=== PATIENT | female | born 1935 | race African-American/Black ===

== ENCOUNTER 2019-03-24 17:18 | Emergency (ER) | payer MEDICARE ==
[~2019-03-24] VITALS: Ht 157.5 cm; Wt 45.4 kg
--- NOTE | 2019-03-24 17:45 | NUR ---
ED Nurse Note: Pt brought in by ambulance from home d/t pt's family reporting that she has ALOC. Pt was recently discharged from SNF. Family nor EMS reported baseline; awaiting pt's family to arrive to ask about pt's normal level of consciousness. Vital signs stable as documented. Pt is A+Ox1, nonverbal. Contractures noted. Addendum: 03/24/19 at 1758 by BDUTTON BP elevated @ 178/108
[2019-03-24 18:02] VITALS: BP 172/111
[2019-03-24 18:02] LABS: APPEARANCE,URINE CLEAR; BILIRUBIN, URINE NEGATIVE (NEGATIVE); COLOR,URINE PALE YELLOW; GLUCOSE, URINE (UA) NEGATIVE (NEGATIVE); KETONES,URINE NEGATIVE (NEGATIVE); LEUKOCYTE ESTERASE ,URINE NEGATIVE (NEGATIVE); NITRITE,URINE NEGATIVE (NEGATIVE); PH,URINE 6 (4.5-8.0); PROTEIN,URINE 4+ (NEGATIVE); UROBILINOGEN,URINE NORMAL MG/DL (0.0-1.0)
[2019-03-24 18:06] LABS: BASOPHILS % (AUTO) 0.8 % (0.0-2.0); EOSINOPHILS % (AUTO) 0.7 % (0.0-3.0); HEMATOCRIT 30.9 % (37.0-47.0); HEMOGLOBIN 10.4 G/DL (12.0-16.0); LYMPHOCYTES % (AUTO) 14.7 % (20.0-45.0); MEAN CORPUSCULAR VOLUME 89 FL (80-99); MONOCYTES % (AUTO) 4.7 % (1.0-10.0); NEUTROPHILS % (AUTO) 79.2 % (45.0-75.0); PLATELET COUNT 341 K/UL (150-450); RED BLOOD COUNT 3.47 M/UL (4.20-5.40); RED CELL DISTRIBUTION WIDTH 10.9 % (11.6-14.8)
[2019-03-24 18:19] LABS: ANION GAP 9 mmol/L (5-15); BLOOD UREA NITROGEN 35 mg/dL (7-18); CALCIUM 7.4 MG/DL (8.5-10.1); CARBON DIOXIDE 28 MMOL/L (21-32); CHLORIDE 107 MMOL/L (98-107); CREATININE 1.6 MG/DL (0.55-1.30); POTASSIUM 5.1 MMOL/L (3.5-5.1); SODIUM 144 MMOL/L (136-145)
--- NOTE | 2019-03-24 18:21 | NUR ---
ED Nurse Note: BP 148/80. ED MD aware.
--- NOTE | 2019-03-24 18:24 | Diagnostic Imaging Report ---
EXAM: XR Chest, 1 View CLINICAL HISTORY: SOB TECHNIQUE: Frontal view of the chest. COMPARISON: No relevant prior studies available. FINDINGS: Lungs: Senescent changes. No confluent consolidation or edema. [place] of shadows or opacity/lesion left lung base. Pleural space: Unremarkable. No pneumothorax. Heart: Large cardiomediastinal silhouette. Mediastinum: See above. Bones/joints: No acute fracture. IMPRESSION: Senescent changes. No confluent consolidation or edema.
[2019-03-24 18:32] LABS: ALANINE AMINOTRANSFERASE 39 U/L (12-78); ALBUMIN 2.9 G/DL (3.4-5.0); ALBUMIN/GLOBULIN RATIO 0.6 (1.0-2.7); ALKALINE PHOSPHATASE 96 U/L (46-116); ASPARTATE AMINO TRANSFERASE 33 U/L (15-37); BILIRUBIN,TOTAL 0.1 MG/DL (0.2-1.0); CKMB 5.2 NG/ML (0.0-3.6); CREATINE KINASE 276 U/L (26-308); PHOSPHORUS 4.1 MG/DL (2.5-4.9)
--- NOTE | 2019-03-24 19:06 | NUR ---
HAND-OFF: Report given to Rex stephens RN. Endorsed all plan of care to Rex Stephens RN.
--- NOTE | 2019-03-24 19:15 | NUR ---
ED Nurse Note: RECEIVED REPORT FROM MIGUEL FALCON. PT AGUSTIN COFFEY. WILL CONTINUE TO MONITOR PATIENT.
[2019-03-24 21:30] VITALS: BP 143/86
--- NOTE | 2019-03-24 21:30 | NUR ---
ER DISCHARGE NOTE: Patient is cleared to be discharged per ERMD, pt is aox4, on room air, with stable vital signs. pt family was given dc instructions, pt family was able to verbalize understanding, pt id band and iv site removed without complications. pt is transported to family member's vehicle via wheelchair with . pt family took all belongings.
--- NOTE | 2019-03-24 22:04 | Emergency Room Report ---
History of Present Illness General Chief Complaint: Altered Level of Consciousness Source: EMS Present Illness HPI Patient is an 83-year-old female presents after increased confusion. Patient had prior recent history of decubitus ulcer. She had prior history of dementia and is normally bedbound. Patient's spouse had recently been . She had not been having any fever. She had been urinating normally. She had home health nurse had been taken care of decubitus ulcer and patient had not been improving. Allergies: Coded Allergies: UNABLE TO ASSESS (Unverified , 03/24/19) Patient History Past Medical History: see triage record Reviewed Nursing Documentation: PMH: Agreed; PSxH: Agreed Nursing Documentation-PMH Past Medical History: No History, Except For Review of Systems All Other Systems: negative except mentioned in HPI Physical Exam Vital Signs Date Time Temp Pulse Resp B/P (MAP) Pulse Ox O2 Delivery O2 Flow Rate FiO2 03/24/19 17:18 97.9 96 20 167/141 (150) 100 Room Air Sp02 EP Interpretation: normal General Appearance: alert, GCS 15 Neck: normal inspection, full range of motion Respiratory: normal inspection Cardiovascular #1: normal inspection Gastrointestinal: normal inspection, non tender, soft Musculoskeletal: normal inspection Neurologic: alert, motor strength/tone normal, EOM palsy Medical Decision Making Diagnostic Impression: Primary Impression: Dehydration Additional Impression: Decubitus ulcer ER Course Patient presented for altered mental status. Differential diagnosis include was not limited to CVA, electrolyte normality, dehydration, urinary tract infection, intoxication among others. Because of complexity of patient's case laboratory tests and imaging studies were ordered.Patient's laboratory testing was noted to have some signs of dehydration. Patient does not appear to have any active infection. CT of the head read by radiology showed no evidence of acute CVA. Per patient's son patient is at baseline mental status. Decubitus ulcer does not appear to be infected at this time. Patient's son was given return precautions. patient is advised to follow up with primary care doctor in 1-2 days. Patient is advised to return if any worsening condition or if any changes in status that are concerning. This report is dictated with [employer] auto damage adjuster software which may occasionally lead to discrepancies related to use of this software. Last Vital Signs Date Time Temp Pulse Resp B/P (MAP) Pulse Ox O2 Delivery O2 Flow Rate FiO2 03/24/19 18:02 97.9 78 20 172/111 100 Room Air Status: improved Disposition: HOME, SELF-CARE Condition: Stable Scripts Unable to Obtain Active Prescriptions or Reported Meds Patient Instructions: Dehydration, Adult Additional Instructions: Follow up with your doctor for recheck. Return if worse. Franki Torre MD Mar 24, 2019 22:04
== END 2019-03-24 21:30 | disposition home or self-care (01) ==
LOC: EDBD 17:18 → EMR 19:02
DX: E86.0 Dehydration (principal); L89.90 Pressure ulcer of unspecified site, unspecified stage
CPT/HCPCS: 36415; 71045; 80053; 81003; 82550; 82553; 83605; 83735; 84100; 84484; 85025; 87040; 87081; 93005; 96360; 99284